=== PATIENT | male | born 1975 | race African-American/Black ===

== ENCOUNTER 2019-02-24 20:34 | Emergency (ER) | payer SELFPAY ==
--- NOTE | 2019-02-24 20:40 | NUR ---
ED Nurse Note: PATIENT LEFT WITHOUT BEING SEEN.
== END 2019-02-24 20:42 | disposition left against medical advice (07) ==
LOC: EMR 20:42
DX: Z53.21 Procedure and treatment not carried out due to patient leaving prior to being seen by health care provider (principal)